=== PATIENT | male | born 1985 | race Two or more races ===

== ENCOUNTER 2021-12-20 08:33 | Emergency (ER) | payer OTHER ==
[~2021-12-20] VITALS: Ht 177.8 cm; Wt 99.8 kg
[2021-12-20] MEDS ORDERED: ORPHENADRINE C100 MG PO (10:44)
== END 2021-12-20 11:12 | disposition home or self-care (01) ==
LOC: ER 08:33
DX: S39.82XA Other specified injuries of lower back, initial encounter (principal); W07.XXXA Fall from chair, initial encounter; Y93.9 Activity, unspecified; Y92.9 Unspecified place or not applicable; Y99.9 Unspecified external cause status; M25.552 Pain in left hip; Z88.8 Allergy status to other drugs, medicaments and biological substances